=== PATIENT | female | born 1975 | race Caucasian/White ===

== ENCOUNTER 2017-01-30 13:24 | Emergency (ER) | payer SELFPAY ==
[2017-01-30 15:30] VITALS: BP 144/96
== END 2017-01-30 15:30 | disposition home or self-care (01) ==
LOC: ED 13:24
DX: H00.015 Hordeolum externum left lower eyelid (principal); I10 Essential (primary) hypertension; E66.9 Obesity, unspecified; Z88.0 Allergy status to penicillin